=== PATIENT | female | born 1935 | race Two or more races ===

== ENCOUNTER → 2020-11-02 | Outpatient (CLI) | payer MEDICARE, OTHER ==
[~2020-11-02] MED LIST: ALDACTONE25 MG PO; ASPIR 8181 MG PO; BIDIL TABLET1 EACH PO; ELIQUIS 2.5 MG2.5 MG PO; HYDROCHLOROTH12.5 M1 PO; LASIX40 MG PO; LOPRESSOR50 MG PO; NORVASC 5 MG TAB5 MG PO; SYNTHROID88 MCG PO; TOPROL XL25 MG PO
[2020-11-02 13:08] LABS: HEMOGLOBIN 14.2 gm/dl (12.3-15.3); RED BLOOD COUNT 4.61 M/UL (4.00-5.10); WHITE BLOOD COUNT 7.1 K/UL (4.5-11.0)
== END ==
LOC: US 10:30
PROVIDERS: Internal Medicine Nephrology
DX: N18.30 Chronic kidney disease, stage 3 unspecified (principal); N26.1 Atrophy of kidney (terminal)
CPT/HCPCS: 36415; 80053; 82570; 84156; 85027

== ENCOUNTER 2021-11-15 17:32 | Emergency (ER) | payer MEDICARE, OTHER ==
[~2021-11-15 17:32] MED LIST changes: -BENZONATATE100 MG PO; -PROVENTIL HFA6.7 GM INH
[2021-11-15 19:28] LABS: HEMOGLOBIN 10.7 gm/dl (12.3-15.3); RED BLOOD COUNT 3.66 M/UL (4.00-5.10); WHITE BLOOD COUNT 10.2 K/UL (4.5-11.0)
[2021-11-16] MEDS ORDERED: PROVENTIL HFA6.7 GM INH (01:40)
[2021-11-16] MEDS ORDERED: BENZONATATE100 MG PO (01:40)
== END 2021-11-16 02:20 | disposition home or self-care (01) ==
LOC: ER1 17:32
PROVIDERS: Physician Assistant
DX: U07.1 COVID-19 (principal); J12.82 Pneumonia due to coronavirus disease 2019; E87.1 Hypo-osmolality and hyponatremia; I13.0 Hypertensive heart and chronic kidney disease with heart failure and stage 1 through stage 4 chronic kidney disease, or unspecified chronic kidney disease; I48.91 Unspecified atrial fibrillation; N18.9 Chronic kidney disease, unspecified; I50.9 Heart failure, unspecified; E03.9 Hypothyroidism, unspecified; Z79.82 Long term (current) use of aspirin; Z79.01 Long term (current) use of anticoagulants
CPT/HCPCS: 0240U; 71045; 80048; 80053; 82550; 82553; 83880; 84439; 84443; 84484; 85025; 93005; 99284

== ENCOUNTER → 2021-11-15 | Outpatient (CLI) | payer MEDICARE, OTHER ==
[~2021-11-15] MED LIST changes: +BENZONATATE100 MG PO; +PROVENTIL HFA6.7 GM INH
== END ==
LOC: LAB 09:52
PROVIDERS: Nurse Practitioner Family
DX: I10 Essential (primary) hypertension (principal)
CPT/HCPCS: 36415; 80048; 94664

== ENCOUNTER 2021-11-29 12:26 | Inpatient (IN) | payer MEDICARE, OTHER ==
[~2021-11-29] VITALS: Ht 152.4 cm; Wt 45.4 kg
[~2021-11-29 12:26] MED LIST changes: +BENZONATATE100 MG PO; +PROVENTIL HFA6.7 GM INH; +SYNTHROID100 MCG PO; -SYNTHROID88 MCG PO
[2021-11-29 13:24] LABS: HEMOGLOBIN 11.1 gm/dl (12.3-15.3); RED BLOOD COUNT 3.82 M/UL (4.00-5.10); WHITE BLOOD COUNT 6.6 K/UL (4.5-11.0)
[2021-11-29] MEDS ORDERED: HYDRALAZINE HCL25 MG PO (17:22)
--- NOTE | 2021-11-30 08:45 | NUR ---
patient 86 y.o. non kyr[place]z speaking and communicates to daughters only. offered horse racing manager and daughter stated she does not think that patient will responds to horse racing manager. informed my vacuum metalizing supervisor and will get back with me
--- NOTE | 2021-11-30 19:01 | NUR ---
daughters requested for patient to be sponge bath and walked on the hallway this evening and for housekeeping to clean the room. relayed instructions to travis mendez. travis came out from the patient room and was told that patient wanted to have sponge bath tommorrow between 9-10 in the morning. contacted housekeeping to clean the room as requested to empty garbage cans and mopped the room.
--- NOTE | 2021-11-30 19:09 | NUR ---
patient transfered from [facility] this morning with no cardiac insufficiency noted, answer questions appropriately. using 2L oxygen via nasal cannula and telemetry in placed. denies any pain and wake and alert.
--- NOTE | 2021-11-30 21:09 | NUR ---
Late entry for 2034 - This RN asks patient's family, if she would like to take a shower, and for a retail bakery manager. Patient and family refuses retail bakery manager provided, states that a family member will always be with her and that they and the patient prefers the family to translate. landscape supervisor notified. Patient asked if she would like to take a shower, patient states she would like to have partial bath and have a complete shower in the morning. Philip UPTON informed, task delegated.
--- NOTE | 2021-12-01 07:24 | NUR ---
DURING ASSESSMENT PATIENT DOESNT SPEAK [place]. INFORMED THEM WE COULD PROVIDE A [place] MAKEUP ARTIST. PATIENT REFUSED.
[2021-12-01] MEDS ORDERED: FERROUS SULFAT325 M2 PO (18:28)
[2021-12-01] MEDS ORDERED: BUMETANIDE1 MG PO (18:28)
== END 2021-12-01 19:26 | disposition home or self-care (01) | DRG 291 ==
LOC: ER1 12:26 → CDU 14:44 → M/S 14:44
PROVIDERS: Emergency Medicine; Internal Medicine Nephrology; ADMIT Internal Medicine
PROC: B24BZZZ Ultrasonography of Heart with Aorta (ICD-10-PCS; principal; 2021-11-30)
DX: I13.0 Hypertensive heart and chronic kidney disease with heart failure and stage 1 through stage 4 chronic kidney disease, or unspecified chronic kidney disease (principal); I50.23 Acute on chronic systolic (congestive) heart failure; E87.1 Hypo-osmolality and hyponatremia; E03.9 Hypothyroidism, unspecified; E11.22 Type 2 diabetes mellitus with diabetic chronic kidney disease; I48.91 Unspecified atrial fibrillation; D50.9 Iron deficiency anemia, unspecified; N18.32 Chronic kidney disease, stage 3b; Z79.01 Long term (current) use of anticoagulants; Z79.899 Other long term (current) drug therapy; Z86.16 Personal history of COVID-19; Z79.82 Long term (current) use of aspirin
CPT/HCPCS: ECHO; 36415; 71045; 80048; 80053; 81001; 82436; 82550; 82553; 82570; 82728; 83540; 83550; 83735; 83880; 83935; 84133; 84300; 84439; 84443; 84484; 85025; 93005; 93306; 96374; 99285; J1756; J1940; J7030

== ENCOUNTER → 2021-12-04 | Outpatient (CLI) | payer MEDICARE, OTHER ==
[~2021-12-04] MED LIST changes: +BUMETANIDE1 MG PO; +FERROUS SULFAT325 M2 PO; +HYDRALAZINE HCL25 MG PO
== END ==
LOC: LAB 10:31
PROVIDERS: Internal Medicine
DX: E87.1 Hypo-osmolality and hyponatremia (principal)
CPT/HCPCS: 36415; 80048

== ENCOUNTER 2021-12-23 18:17 | Inpatient (IN) | payer MEDICARE, OTHER ==
[~2021-12-23] VITALS: Ht 152.4 cm; Wt 44.9 kg
[2021-12-23 22:00] LABS: HEMOGLOBIN 11.1 gm/dl (12.3-15.3); RED BLOOD COUNT 3.77 M/UL (4.00-5.10); WHITE BLOOD COUNT 5.8 K/UL (4.5-11.0)
[2021-12-24 10:01] LABS: HEMOGLOBIN 11.3 gm/dl (12.3-15.3); RED BLOOD COUNT 3.79 M/UL (4.00-5.10); WHITE BLOOD COUNT 5.4 K/UL (4.5-11.0)
[2021-12-24] MEDS ORDERED: MULTIVITAMIN1 EACH PO (10:22)
[2021-12-24] MEDS ORDERED: FERROUS SULFAT325 MG PO (10:22)
[2021-12-24] MEDS ORDERED: ASPIRIN EC81 MG PO (10:22)
[2021-12-25 05:52] LABS: HEMOGLOBIN 11.4 gm/dl (12.3-15.3); RED BLOOD COUNT 3.88 M/UL (4.00-5.10); WHITE BLOOD COUNT 5.4 K/UL (4.5-11.0)
[2021-12-26 04:41] LABS: HEMOGLOBIN 11.6 gm/dl (12.3-15.3); RED BLOOD COUNT 3.95 M/UL (4.00-5.10)
[2021-12-26] MEDS ORDERED: BUMETANIDE1 MG PO (10:53)
== END 2021-12-26 16:31 | disposition home or self-care (01) | DRG 291 ==
LOC: ER1 18:17 → CDU 12-24 00:14 → M/S 12-24 00:14
PROVIDERS: Internal Medicine; Internal Medicine Nephrology; Physician Assistant Medical; ADMIT Student in an Organized Health Care Education/Training Program
DX: I13.0 Hypertensive heart and chronic kidney disease with heart failure and stage 1 through stage 4 chronic kidney disease, or unspecified chronic kidney disease (principal); I50.43 Acute on chronic combined systolic (congestive) and diastolic (congestive) heart failure; E87.1 Hypo-osmolality and hyponatremia; I48.20 Chronic atrial fibrillation, unspecified; E46 Unspecified protein-calorie malnutrition; N17.9 Acute kidney failure, unspecified; Z66 Do not resuscitate; D63.1 Anemia in chronic kidney disease; I34.0 Nonrheumatic mitral (valve) insufficiency; R53.81 Other malaise; E03.9 Hypothyroidism, unspecified; D50.9 Iron deficiency anemia, unspecified; N18.32 Chronic kidney disease, stage 3b; I48.0 Paroxysmal atrial fibrillation; I42.0 Dilated cardiomyopathy; E87.6 Hypokalemia; Z79.01 Long term (current) use of anticoagulants; Z79.82 Long term (current) use of aspirin; Z68.20 Body mass index [BMI] 20.0-20.9, adult
CPT/HCPCS: 36415; 71045; 80048; 80053; 80061; 80076; 82550; 82553; 83540; 83550; 83735; 83880; 84100; 84295; 84484; 85025; 85027; 93005; 96374; 97116; 97161; 97165; 97535; 99285; J0360